=== PATIENT | male | born 1950 | race Caucasian/White ===

== ENCOUNTER 2018-10-14 10:33 | Outpatient (CLI) | payer MEDICARE, BC ==
[2018-10-14 11:33] LABS: Estimated GFR-MDRD - POC Greater than 90
--- NOTE | 2018-10-14 15:01 | CT ---
CT chest noncontrast HISTORY: Supraclavicular mass. COMPARISON: 05/16/2009. FINDINGS: Minimal dependent bibasilar atelectasis. No lobar consolidation. No pleural fluid or pneumo thorax. Nonspecific nonenlarged lymph nodes throughout the mediastinum are unchanged in appearance from the p revious exam. No supraclavicular mass is demonstrated on this exam. Please see separate report regarding CT of the neck. Degenerative changes thoracic spine. IMPRESSION: No significant abnormalities are demonstrated.
--- NOTE | 2018-10-14 16:11 | CT ---
CT NECK SOFT TISSUES WITH CONTRAST: Date: 10/14/18 HISTORY: 68-year-old male with ICD-10: R22.2 supraclavicular mass. COMPARISON: 10/19/08. FINDINGS: Again noted is the bilateral thickening of the palatine tonsils. The lingual tonsil and adenoids are not significantly enlarged. No abnormality identified involving the parotid, retropharyngeal, submand ibular, wood lather, posterior cervical, retropharyngeal, and perivertebral, and parapharyngeal, space s. There is no cervical lymphadenopathy, cystic lesion, or solid tumor mass. This includes the suprac lavicular regions bilaterally. There is a greater amount of fat in the bilateral supraclavicular jj ons now than on the previous CT of 2008, as well as increase in volume fat in all areas of neck and u pper chest in general. No destructive osseous lesion. Mucus retention cyst at floor of left maxillary sinus is noted. It is smaller than the one in 2009. The rest of the maxillary sinuses, and the bilat eral tympanomastoid cavities, are grossly clear. There is mild atherosclerotic calcification of right proximal internal carotid artery without high grade stenosis there. No other abnormality of bilatera l carotid spaces. Nonspecific multiple mildly enlarged mediastinal lymph nodes. Normal larynx. No th yromegaly. IMPRESSION: 1. Generalized overall increased amount of body fat compared to 2009. 2. This includes lipomatosis of the bilateral supraclavicular regions. 3. Mild enlargement of bilateral palatine tonsils. 4. Otherwise negative. 5. No evidence of cervical neoplasm. POS: CET
== END 2018-10-14 10:34 | disposition home or self-care (01) ==
LOC: BICCT 10:33
PROVIDERS: ATTEND Surgery
DX: R22.2 Localized swelling, mass and lump, trunk (principal); E88.2 Lipomatosis, not elsewhere classified; J35.1 Hypertrophy of tonsils
CPT/HCPCS: 70491; 71260; 82565

== ENCOUNTER 2019-03-22 16:29 | Inpatient (IN) | payer MEDICARE, BC ==
[2019-03-22 17:17] LABS: #Eosinphils 0.1 thou/uL (0.0-0.7); #Lymphocytes 1.5 thou/uL (1.20-3.40); #Monocytes 0.8 thou/uL (0.11-0.59); #Neutrophils 6.7 thou/uL (1.40-6.50); %Basophils 0.5 % (0.0-1.0); %Eosinophils 1.4 % (0.0-10.0); %Monocytes 8.7 % (0.0-10.0); %Neutrophils 73.3 % (42.0-75.0); Hemoglobin 16.2 g/dL (14.0-18.0); Mean Corpuscular HGB CONC 33.1 g/dL (32.0-36.0); Mean Corpuscular Hemoglobin 29.9 pg (27.0-31.0); Mean Corpuscular Volume 90.3 fL (78.0-98.0); Platelet Count 294 thou/uL (130-400); RBC Distribution Width 12.6 % (11.5-14.5); Red Blood Cell (RBC) Count 5.43 mill/uL (4.70-6.10); White Blood Cell (WBC) Count 9.2 thou/uL (4.8-10.8)
[2019-03-22] MEDS ORDERED: Diltiazem 125 MG in Sodium Chloride 0.9% 100 ML IVPB SCH (17:30)
[2019-03-22 17:48] LABS: ALT (SGPT) 34 U/L (8-55); AST (SGOT) 22 U/L (5-34); Albumin 4.3 g/dL (3.4-4.8); Alkaline Phosphatase 77 U/L (40-110); Anion Gap 12 mmol/L (10-20); BUN (Urea Nitrogen) 16 mg/dL (8.4-25.7); Bilirubin, Total 0.8 mg/dL (0.2-1.2); CK (CPK) 53 U/L (30-200); Calc. Creatinine Clearance 0 mL/min (70-130); Calcium 9.3 mg/dL (7.8-10.44); Carbon Dioxide 28 mmol/L (23-31); Chloride 106 mmol/L (98-107); Estimated GFR-MDRD 84; Globulin 3.4 g/dL (2.4-3.5); Glucose 114 mg/dL (80-115); Potassium 3.9 mmol/L (3.5-5.1); Protein, Total 7.7 g/dL (5.8-8.1); Sodium 142 mmol/L (136-145)
--- NOTE | 2019-03-22 18:17 | RAD ---
PORTABLE CHEST: 03/22/19 PROVIDED CLINICAL HISTORY: Dyspnea. FINDINGS: Comparison 05/20/13. Cardiac and mediastinal silhouette is unchanged in appearance. No focal consolidation, pleural fluid, or pneumothorax apparent. IMPRESSION: No evidence for an acute cardiopulmonary process. POS: LORNA
[2019-03-22 18:51] LABS: Prothrombin Time 13.1 SEC (12.0-14.7)
[2019-03-22 18:52] LABS: PTT 31.8 SEC (22.9-36.1)
[2019-03-22] MEDS ORDERED: Enoxaparin Sodium 100 MG/ML SYRINGE ONE (19:12)
[2019-03-22] MEDS ORDERED: Insulin Regular 300 UNITS/3 ML VIAL SC PRN (21:27)
[2019-03-22] MEDS ORDERED: Dextrose 5% in Water 1,000 ML IV PRN (21:27)
[2019-03-22] MEDS ORDERED: Dextrose 50% Abboject 50 ML SYRINGE IVP PRN (21:27)
[2019-03-22 23:03] VITALS: BMI 35.3
[2019-03-22 23:37] LABS: Troponin I Less than 0.010 ng/mL (< 0.028)
[2019-03-23 05:57] LABS: Troponin I 0.014 ng/mL (< 0.028)
[2019-03-23 05:59] LABS: ALT (SGPT) 30 U/L (8-55); AST (SGOT) 21 U/L (5-34); Albumin 3.7 g/dL (3.4-4.8); Alkaline Phosphatase 64 U/L (40-110); Anion Gap 13 mmol/L (10-20); BUN (Urea Nitrogen) 14 mg/dL (8.4-25.7); Bilirubin, Total 0.8 mg/dL (0.2-1.2); Calc. Creatinine Clearance 148 mL/min (70-130); Calcium 8.7 mg/dL (7.8-10.44); Carbon Dioxide 26 mmol/L (23-31); Chloride 105 mmol/L (98-107); Estimated GFR-MDRD Greater than 90; Globulin 3.1 g/dL (2.4-3.5); Glucose 122 mg/dL (80-115); Potassium 3.9 mmol/L (3.5-5.1); Protein, Total 6.8 g/dL (5.8-8.1); Sodium 140 mmol/L (136-145)
[2019-03-23] MEDS ORDERED: Acetaminophen 325 MG TAB PO PRN (09:27)
--- NOTE | 2019-03-23 16:02 | CON ---
DATE OF CONSULTATION: 03/23/2019 WORK OVER RIG OPERATOR: Rajan Belle MD REASON FOR CONSULTATION: Atrial fibrillation, newly diagnosed, with RVR. HISTORY OF PRESENT ILLNESS: Mr. Cuevas is a 68-year-old gentleman, whose primary care provider is Dr. Villalta. He has a history of hypertension and diabetes as well as obesity. He had run out of his metformin. He had a routine followup appointment with his primary care provider, when they found his heart rate was quite rapid. A 12-lead EKG was done and he was found to be in atrial fibrillation with RVR. He was placed on a diltiazem drip and transferred to [facility] for further medical care and evaluation. He remains on a Cardizem drip at 5 mg/hour, which has largely rate controlled him between 75 and 100 beats per minute. He endorses that he has no prior diagnosis of atrial fibrillation, was not on anticoagulation prior to this hospital stay. He had been having some fatigue and weakness with low energy levels for the past 2 to 3 months, but no severe limitations or symptomatic presentation was seen. He denies any heart racing, palpitations, chest pain, pressure, syncope, near syncope, stroke, or stroke- like symptoms. REVIEW OF SYSTEMS: A 12-point review of systems is negative except that listed above in HPI. PAST MEDICAL HISTORY: 1. Hypertension. 2. Type 2 diabetes, on metformin. 3. Obesity. FAMILY HISTORY: Father from a heart attack in his 60s and mother had congestive heart failure. A brother has atrial fibrillation. SOCIAL HISTORY: Denies alcohol, tobacco, or illicit drug use. HOME MEDICATIONS: 1. Aspirin 81 mg daily. 2. Metformin 1000 mg p.o. q.p.m. 3. Amlodipine and atorvastatin 5/20 mg daily. 4. Lisinopril 10 mg daily. OBJECTIVE: VITAL SIGNS: Temperature 97.8, pulse 79, blood pressure 120/77, respirations 14, and oxygenation is 96% on room air. GENERAL: The patient is alert and oriented. Speech is clear. Affect is appropriate. He is in no apparent distress. Resting comfortably in bed at the time of the exam. NECK: Quite large. No jugular venous distention is seen, but is difficult to assess with his habitus. Trachea is midline. There is no lymphadenopathy. Carotids are without bruit. HEART: Rate is irregularly irregular. Heart rate is controlled. PMI is nonpalpable due to habitus. LUNGS: Clear to auscultation bilaterally without wheezes, crackles, or rhonchi. Respirations are even and unlabored with good bilateral excursion. ABDOMEN: Obese, soft, and nontender without palpable masses. Hepatojugular reflux is negative. EXTREMITIES: Warm and dry to touch without clubbing, cyanosis, or edema. NEUROLOGIC: Grossly intact and nonfocal. Gait was not assessed. DATABASE: EKG shows atrial fibrillation with a controlled ventricular rate in the 70s by telemetry. Atrial fibrillation is ongoing since being on telemetry. LABORATORY DATA: Hematology was unremarkable. Chemistry: Potassium 3.9, creatinine 0.82. Liver enzymes are within normal limits. Troponins are negative. TSH is 2.03. Echocardiogram on 03/23/2019 shows left ventricular size is mildly increased, left ventricular ejection fraction is mildly depressed and estimated at 40% to 45%, left atrium is mildly dilated. There is moderate MR, mild AR, mild TR. Aortic valve is sclerotic. Left atrial area is 27.96 sq cm. Left atrial volume index is 102.3 mL. IMPRESSION: 1. Newly diagnosed atrial fibrillation with rapid ventricular response, moderately symptomatic with fatigue, shortness of breath, and low energy levels, now rate controlled on Cardizem. 2. CHADS-VASc score of 3 on the basis of advancing age, hypertension, and type 2 diabetes, possibly for considering the mild cardiomyopathy that is newly diagnosed. 3. Family history of coronary artery disease. 4. Mild cardiomyopathy, etiology unknown. Ejection fraction 40% to 45%. 5. Obesity. 6. High risk for sleep apnea. PLAN AND RECOMMENDATIONS: I had a long discussion with Mr. Cuevas and his family who is at bedside regarding atrial fibrillation and treatment options. They are actually somewhat familiar with this as his brother has atrial fibrillation and has undergone both JOHANN cardioversion, antiarrhythmic therapy, and ablation in the past. Mr. Cuevas has newly diagnosed cardiomyopathy and Cardiology consult is pending. We will discuss with Cardiology and see if possible ischemic evaluation is pending. Ultimately, Mr. Cuevas remains on a diltiazem drip, and based on his symptoms, it sounds like his atrial arrhythmias have likely been persisting for the past 2 to 3 months. We discussed treatment options of JOHANN-guided cardioversion, antiarrhythmic therapy, and ablation. At this point, I would recommend he undergo a JOHANN cardioversion, which could possibly be done by one of Dr. Belle's associates tomorrow. If recurrence is seen, we could consider antiarrhythmic therapy with flecainide 100 mg p.o. b.i.d., but would like a stress test to assess for any underlying coronary artery disease before initiating class 1C antiarrhythmic therapy. Alternatively, with his mildly reduced EF, amiodarone could be considered as well. Long-term, he may require an ablation for arrhythmia management. His left atrium on echocardiogram does show some dilation already, suggesting a longer history of this atrial fibrillation than has been clinically seen. We will schedule him for a JOHANN cardioversion tomorrow with Cardiology and keep him n.p.o. after midnight. He can continue on the diltiazem drip for now, but anticipate this being stopped following cardioversion. Thank you for allowing me to participate in the care of this patient. Job ID: [id number] MTDD
[2019-03-23] MEDS: Carvedilol 3.125 MG TAB PO SCH (16:07)
--- NOTE | 2019-03-23 16:18 | HP ---
CHIEF COMPLAINT: Irregular heartbeat. HISTORY OF PRESENT ILLNESS: Mr. Cuevas is a 68-year-old male with past medical history of diabetes, hypertension, hyperlipidemia, was seen earlier in the office for routine followup and refills. The patient did not have any palpitation, no chest pain. He has some shortness of breath on and off on exertion for the last few weeks, but no dizziness. The patient on exam was found to have irregular heartbeat. EKG was done in the office revealed atrial fibrillation with controlled heart rate. So, the patient was advised to go to the ER for further evaluation. First he went home, then he wanted to go home tomorrow, but later he decided to go to the ER today itself and he went by EMS and he was found to be in atrial fibrillation with rapid ventricular rate in the ER. The patient received diltiazem IV push and then started on infusion afterwards. Also he received a dose of Lovenox. The patient admitted for further evaluation and management. His heart rate is controlled now. He did not have any chest pain or shortness of breath now. PAST MEDICAL HISTORY: 1. Hypertension. 2. Diabetes mellitus. 3. Hyperlipidemia. PAST SURGICAL HISTORY: Status post back surgery, status post knee surgery, status post hernia repair, status post stomach tumor removed. CURRENT MEDICATIONS: The patient is on 1. Metformin 1000 b.i.d. 2. Aspirin 81 mg daily. 3. Lisinopril 10 mg daily. 4. Amlodipine with atorvastatin 5/20 daily. ALLERGIES: NKDA. FAMILY HISTORY: Nothing contributory. SOCIAL HISTORY: The patient lives with family. No history of smoking. He drinks alcohol, beer five drinks a day. REVIEW OF SYSTEMS: CARDIOVASCULAR: Has no chest pain. No shortness of breath. RESPIRATORY: No fever or cough. GASTROINTESTINAL: No nausea, vomiting, or abdominal pain. CENTRAL NERVOUS SYSTEM: No headache, dizziness. PHYSICAL EXAMINATION: GENERAL: The patient is alert, awake, oriented x3. VITAL SIGNS: Temperature 98, pulse 112 initially, respiration 20, blood pressure 150/100. HEENT: Head is normocephalic, atraumatic. Pupils are equal and reactive. Nasopharynx is pale and dry. NECK: Supple. No JVD. LUNGS: Bilateral air entry. No rales. No rhonchi. HEART: S1, S2. Irregularly irregular. ABDOMEN: Soft. No distention. No tenderness. Normal bowel sounds. RECTAL: Deferred. CENTRAL NERVOUS SYSTEM: No focal deficits. LABORATORY DATA: CBC shows WBC 9, hemoglobin 16, hematocrit 49, platelets 294. Metabolic panel: Sodium 140, potassium 3.9, chloride 104, CO2 of 26, urea nitrogen 14, creatinine 0.9, glucose 122. Troponin I less than 0.010. Prothrombin time 13, INR 1. Chest x-ray, no acute changes seen. EKG showed atrial fibrillation with rapid ventricular rate with heart rate of 117, no acute ST-T changes seen. ASSESSMENT: 1. Atrial fibrillation, new onset with rapid ventricular rate. 2. Hypertension. 3. Diabetes mellitus. 4. Hyperlipidemia. PLAN: 1. Vital signs q.4 hours. 2. Activities as tolerated. 3. Allergies NKDA. 4. Diet, cardiac ADA. 5. Cardizem infusion 5 mL/hour. 6. Accu-Chek before meals. 7. Sliding scale mild with regular insulin. 8. Hold metformin. 9. We will continue his home medications. Cardiology consult. Job ID: [id number]
[2019-03-23] MEDS ORDERED: Amiodarone 150 MG, Admixture Fee 1 EACH in Dextrose 5% in Water 100 ML IVPB SCH (17:00)
[2019-03-23] MEDS: Amiodarone 450 MG in Dextrose 5% in Water 250 ML IVPB SCH (17:48)
--- NOTE | 2019-03-23 18:39 | CON ---
DATE OF CONSULTATION: HISTORY OF PRESENT ILLNESS: Dane Cuevas is a 68-year-old white male, who went yesterday to see his primary physician, Dr. Villalta for routine followup. There, it was noticed that he had an irregular rhythm, was found to be in atrial fibrillation, and sent to the emergency room. Over the past 2 to 3 months, Mr. Cuevas has noted exertional dyspnea. He denies having any chest, arm, neck, or jaw discomfort. He denies ever feeling any palpitations. At times, he may have some left ankle edema. He denies any PND. PAST MEDICAL HISTORY: Hypertension, diabetes, and hypercholesterolemia. PAST SURGICAL HISTORY: Operations: Removal of gastric carcinoid, knee surgery , and hernia repair. MEDICATIONS: 1. Amlodipine/atorvastatin 5/20 daily. 2. Aspirin 81 daily. 3. Lisinopril 10 mg daily. 4. Metformin 500 mg q.p.m. ALLERGIES: NONE. SOCIAL HISTORY: He smoked until 20 years ago. He does drink a 6 pack a day and more on weekends. FAMILY HISTORY: Father of [place] at age 68. REVIEW OF SYSTEMS: A 10-point review of systems otherwise is unremarkable. PHYSICAL EXAMINATION: VITAL SIGNS: Blood pressure 144/90, pulse of 87 and irregularly irregular. He is on a Cardizem drip. HEENT: PERRL. NECK: Supple. CHEST: Clear. CARDIAC: S1 and S2 are normal without any S3, S4, or murmurs. Carotid upstrokes are normal without bruits. ABDOMEN: Normal bowel sounds without tenderness or organomegaly. EXTREMITIES: Revealed no clubbing, cyanosis, or edema. NEUROLOGIC: Grossly intact. SKIN: Warm and dry. LABORATORY DATA: EKG revealed atrial fibrillation with fast ventricular response, 105 and 117 on separate EKGs as well as left axis deviation. Echocardiogram revealed mild left ventricular enlargement, ejection fraction of 40% to 45%, mild left atrial enlargement, moderate mitral regurgitation, aortic valvular sclerosis, mild aortic regurgitation, and mild tricuspid regurgitation. CBC is unremarkable. INR 1.0. Sodium 140, potassium 3.9, chloride 105, carbon dioxide 26, BUN 14, creatinine 0.82. Troponin I is normal. TSH is normal. IMPRESSION: 1. Atrial fibrillation with fast ventricular response at times. He also has noted exertional dyspnea for 2 months, and that may have been how long he has had the atrial fibrillation. 2. Mild left ventricular dysfunction with ejection fraction of 40% to 45%. 3. Hypertension. 4. Diabetes. 5. Hypercholesterolemia. 6. Former smoker. 7. Positive family history. PLAN: The situation was discussed with the patient and his . We recommended that he be anticoagulated, and Eliquis will be started tonight. Also, with his left ventricular dysfunction, he will be started on amiodarone bolus and drip. It is recommended that he undergo transesophageal echo in the morning to rule out left atrial appendage or left atrial thrombus. He will then undergo electrical cardioversion. Risks of cardioversion were discussed including , worse heart rhythm, embolic event, stroke, etc. He agrees to proceed. Consideration can be given to outpatient nuclear scan. Fasting lipid profile will be obtained. With his left ventricular dysfunction, his current medications will be discontinued, and instead, he will be placed on carvedilol and probably Entresto. Job ID: [id number] MTDD
[2019-03-23] MEDS: Atorvastatin Calcium 20 MG TAB PO SCH (20:19)
[2019-03-23] MEDS: Apixaban 5 MG TAB PO SCH (20:19)
[2019-03-24] MEDS: Amiodarone 450 MG in Dextrose 5% in Water 250 ML IVPB SCH (01:23)
[2019-03-24] MEDS: Carvedilol 3.125 MG TAB PO SCH ×2 (05:44→16:57)
[2019-03-24] MEDS ORDERED: PROPOFOL 60 ML ONE (08:00)
[2019-03-24] MEDS: Apixaban 5 MG TAB PO SCH ×2 (08:36→21:04)
[2019-03-24] MEDS ORDERED: ePHEDrine/0.9% NaCl/PF SYRINGE 50 mg/10 ml ONE ×2 (08:57→09:10)
[2019-03-24] MEDS ORDERED: Regadenoson 0.4 MG/5 ML SYRINGE ONE (12:38)
--- NOTE | 2019-03-24 13:57 | OP ---
DATE OF PROCEDURE: 03/24/2019 PROCEDURE PERFORMED: Transesophageal echogram. INDICATION: A 68-year-old gentleman with paroxysmal atrial fibrillation. DESCRIPTION OF PROCEDURE: The patient was taken to the PACU. The patient was seated by Anesthesiology. A transesophageal probe was placed into the distal esophagus and stomach. Echocardiographic images were obtained. The transesophageal probe was removed. FINDINGS: 1. Marked biatrial enlargement. 2. Left ventricle is mildly dilated. 3. Normal aortic and mitral valves. 4. Mild mitral regurgitation. 5. Mild tricuspid regurgitation. 6. No thrombus noted in the left atrial or left atrial appendage. 7. Atherosclerotic debris in the descending aorta. IMPRESSION: No formed thrombus in the left atrial or left atrial appendage. Job ID: [id number]
--- NOTE | 2019-03-24 16:43 | PDOC.EP ---
- Subjective Date: 03/24/19 Time: 08:00 Interval History: follow up for atrial fibrillation. s/p JOHANN with attempted CV this AM. failed to convert. Some bradycardia with addition of IV amiodarone. otherwise he is feeling fairly well as he recovers from recent anesthesia/JOHANN CV - Review of Systems ROS unobtainable: due to mental status - Objective Allergies/Adverse Reactions: Allergies Allergy/AdvReac Type Severity Reaction Status Date / Time No Known Drug Allergies Allergy Verified 05/20/13 14:54 Current Medications Acetaminophen (Tylenol) 650 mg PO Q4H PRN PRN Reason: Headache/Fever or Pain Last Admin: 03/23/19 09:36 Dose: 650 mg Amiodarone HCl (Cordarone) 200 mg PO TID [facility] Apixaban (Eliquis) 5 mg PO BID [facility] Last Admin: 03/24/19 08:36 Dose: Not Given Atorvastatin Calcium (Lipitor) 20 mg PO HS [facility] Last Admin: 03/23/19 20:19 Dose: 20 mg Carvedilol (Coreg) 3.125 mg PO BID-[facility] Last Admin: 03/24/19 05:44 Dose: 3.125 mg Dextrose/Water (Dextrose 50%) 25 gm IVP PRN PRN PRN Reason: HYPOGLYCEMIA PROTOCOL Glucagon (Glucagon) 1 mg IM PRN PRN PRN Reason: HYPOGLYCEMIA PROTOCOL Dextrose/Water (D5w) 1,000 mls @ 0 mls/hr IV INF PRN PRN Reason: HYPOGLYCEMIA PROTOCOL Insulin Human Regular (Humulin R) 0 units SC .MILD SLIDING PRN; Protocol PRN Reason: MILD SLIDING SCALE Vital Signs & Weight: Vital Signs Temp Pulse Resp BP Pulse Ox 03/24/19 13:03 97.9 F 86 20 120/81 95 03/24/19 10:29 98.7 F 73 18 114/71 93 L 03/24/19 07:25 97.5 F L 64 18 111/72 96 Weight 270 lb I/O: I/O 03/23/19 03/24/19 03/25/19 06:59 06:59 06:59 Intake Total 480 1107 600 Output Total 0 Balance 480 1107 600 - Quality Measures CV meds: Eliquis: Yes - Physical Exam General: appears well, no apparent distress, speech clear, affect appropriate HEENT: mucus membranes moist, normocephaly, EOMI. negative: jaundice, oral lesions Neck: supple neck, midline trachea, no lymphadenopathy Cardiology: regular rate, irregularly irregular. negative: tachycardia Lungs: clear to auscultation, no wheeze, rales, rhonchi Neurology: grossly intact, coordination normal, no lateralizing findings Abdomen: unremarkable, active bowel sounds, no pulsations/bruits, no hepatosplenomegaly Extremities: dry, strong pulses, warm - Chadsvasc Risk factors Congestive heart failure: 1 Hypertension: 1 Age 65-74: 1 Diabetes mellitus: 1 Risk Score: 4 - Labs Result Diagrams: 03/22/19 17:00 03/23/19 04:53 - EKG Interpretation EKG shows: Atrial fibrillation - Assessment/Plan Assessment/Plan: 1. Newly diagnosed atrial fibrillation with rapid ventricular response, moderately symptomatic with fatigue, shortness of breath, and low energy levels, now rate controlled on Cardizem. 2. CHADS-VASc score of 3 on the basis of advancing age, hypertension, and type 2 diabetes, possibly for considering the mild cardiomyopathy that is newly diagnosed. 3. Family history of coronary artery disease. 4. Mild cardiomyopathy, etiology unknown. Ejection fraction 40% to 45%. 5. Obesity. 6. High risk for sleep apnea. CV failed this AM. having bradycardia with IV amiodarone. Will transition to PO amiodarone which may lessen the bradycardic effect. Also on low dose coreg for HF per cardiology. Continue Eliquis. Recommend rate control with amiodarone loading. Can consider CV in 2-4 weeks. Will see back in clinic to discuss options including ablation.
[2019-03-24] MEDS: Amiodarone 200 MG TAB PO SCH (21:03)
[2019-03-24] MEDS: Atorvastatin Calcium 20 MG TAB PO SCH (21:03)
[2019-03-25] MEDS: Amiodarone 200 MG TAB PO SCH (08:58)
[2019-03-25] MEDS: Apixaban 5 MG TAB PO SCH (08:58)
[2019-03-25] MEDS: Carvedilol 3.125 MG TAB PO SCH (11:20)
--- NOTE | 2019-03-25 12:03 | PDOC.EP ---
- Subjective Date: 03/25/19 Time: 12:01 Interval History: follow up for atrial fibrillation. feels well today. Eager to go home. No concerns or complaints - Review of Systems Constitutional: denies: chills, fever, malaise, sweats, weakness, other Respiratory: denies: cough, dry, hemoptysis, pleuritic pain, shortness of breath , SOB with excertion, sputum, wheezing, other Cardiology: denies: chest pain, edema, heart racing, light headedness, paroxysmal noc. dyspnea, orthopnea, palpitations, passing out, pleuritic pain, pressure, swelling, other Gastrointestinal: denies: abdominal pain, constipation, diarrhea, hematochezia, melena, nausea, vomitting, other Musculoskeletal: denies: unstable gait, falls, neck pain, shoulder pain, arm pain, hand pain, leg pain, foot pain, other - Objective Allergies/Adverse Reactions: Allergies Allergy/AdvReac Type Severity Reaction Status Date / Time No Known Drug Allergies Allergy Verified 05/20/13 14:54 Current Medications Acetaminophen (Tylenol) 650 mg PO Q4H PRN PRN Reason: Headache/Fever or Pain Last Admin: 03/23/19 09:36 Dose: 650 mg Amiodarone HCl (Cordarone) 200 mg PO TID [facility] Last Admin: 03/25/19 08:58 Dose: 200 mg Apixaban (Eliquis) 5 mg PO BID [facility] Last Admin: 03/25/19 08:58 Dose: 5 mg Atorvastatin Calcium (Lipitor) 20 mg PO [facility] Last Admin: 03/24/19 21:03 Dose: 20 mg Carvedilol (Coreg) 3.125 mg PO BID-[facility] Last Admin: 03/25/19 11:20 Dose: 3.125 mg Dextrose/Water (Dextrose 50%) 25 gm IVP PRN PRN PRN Reason: HYPOGLYCEMIA PROTOCOL Glucagon (Glucagon) 1 mg IM PRN PRN PRN Reason: HYPOGLYCEMIA PROTOCOL Dextrose/Water (D5w) 1,000 mls @ 0 mls/hr IV INF PRN PRN Reason: HYPOGLYCEMIA PROTOCOL Insulin Human Regular (Humulin R) 0 units SC .MILD SLIDING PRN; Protocol PRN Reason: MILD SLIDING SCALE Last Admin: 03/24/19 21:04 Dose: 2 units Vital Signs & Weight: Vital Signs Temp Pulse Resp BP Pulse Ox 03/25/19 11:18 97.6 F 93 15 133/97 H 95 03/25/19 07:29 98.1 F 88 18 132/77 94 L 03/25/19 04:12 97.9 F 87 18 132/86 94 L Weight 269 lb 14.4 oz I/O: I/O 03/24/19 03/25/19 03/26/19 06:59 06:59 06:59 Intake Total 1107 1320 Output Total 0 Balance 1107 1320 - Quality Measures Condition: Atrial Fibrillation/Flutter (hx or current) CV meds: Eliquis: Yes - Physical Exam General: alert & oriented x3, appears well, no apparent distress, speech clear, affect appropriate HEENT: mucus membranes moist, normocephaly Neck: supple neck, midline trachea, no JVD/HJR Cardiology: regular rate, irregularly irregular Lungs: clear to auscultation, no wheeze, rales, rhonchi Neurology: cranial nerve 2-12 intact, grossly intact, no lateralizing findings Abdomen: unremarkable, no pulsations/bruits, no hepatosplenomegaly Extremities: dry, strong pulses, warm - Chadsvasc Risk factors Hypertension: 1 Age 65-74: 1 Diabetes mellitus: 1 Risk Score: 3 - Labs Result Diagrams: 03/22/19 17:00 03/23/19 04:53 - EKG Interpretation EKG Method: Telemetry EKG shows: Atrial fibrillation - Assessment/Plan Assessment/Plan: 1. Newly diagnosed atrial fibrillation with rapid ventricular response, moderately symptomatic with fatigue, shortness of breath, and low energy levels, now rate controlled on Cardizem. 2. CHADS-VASc score of 3 on the basis of advancing age, hypertension, and type 2 diabetes 3. Family history of coronary artery disease. 4. Mild cardiomyopathy, etiology unknown. Ejection fraction 40% to 45%. 5. Obesity. 6. High risk for sleep apnea. CV failed on 03/24, JOHANN negative for thrombus. Had bradycardia with IV amiodarone. Transitioned to PO amiodarone which lessened the bradycardic effect. Also on low dose coreg for HF per cardiology. Continue Eliquis. Recommend rate control and continued AAD therapy with amiodarone loading. Can consider CV in 2-4 weeks vs PVAI. Will see back in clinic to discuss options including ablation.
--- NOTE | 2019-03-25 12:22 | NM ---
CARDIAC SPECT: HISTORY: A 68-year-old male with elevated troponins, atrial fibrillation, hypertension, diabetes and dyslipide michelle. TECHNIQUE: A myocardial perfusion scan was performed using the single isotope two day protocol with 32 millicuri es technetium 99m sestamibi injected intravenously for the stress and rest images. Pharmacologic stre ss with Lexiscan was monitored and interpreted by Kierra Coelho, Nurse Practitioner. FINDINGS: A homogeneous tracer distribution is seen in the myocardial segments on the rest images. The stress i mages demonstrate a small area of mildly decreased tracer localization in the distal anteroseptal wal l. GATED SPECT LVEF: 58% WALL MOTION: Normal. IMPRESSION: Findings suggestive of small area of mild ischemia with complete reversibility involving the distal a nteroseptal wall. POS: [facility]
[2019-03-25 16:16] VITALS: BP 122/89; TEMP 97.5
--- NOTE | 2019-03-25 16:33 | OP ---
DATE OF PROCEDURE: 03/24/19 SURGEON: Rajan Belle M.D. PROCEDURE: Direct current cardioversion. Patient remained sedated after transesophageal echo demonstrated no intracardiac thrombus. With 200 j oules of synchronized energy, he remained in atrial fibrillation. With 300 joules of synchronized mariah rgy, he had a few sinus beats and then reverted back to atrial fibrillation. He was again cardioverte d with 300 joules using he paddles and again remained in atrial fibrillation. IMPRESSION: Failure to convert atrial fibrillation.
[2019-03-25] MEDS ORDERED: Atorvastatin Calcium 40 MG TAB PO SCH (21:00)
[2019-03-25] MEDS ORDERED: Lisinopril 5 MG TAB PO SCH (21:00)
[2019-03-25] MEDS ORDERED: Amiodarone 200 MG TAB PO SCH (21:00)
== END 2019-03-25 17:12 | disposition home or self-care (01) | DRG 310 ==
LOC: ERS 16:29 → 2NO 18:31
PROVIDERS: ADMIT Internal Medicine; ATTEND Internal Medicine
PROC: B24BZZ4 Ultrasonography of Heart with Aorta, Transesophageal (ICD-10-PCS; principal; 2019-03-24)
PROC: 5A2204Z Restoration of Cardiac Rhythm, Single (ICD-10-PCS; 2019-03-24)
DX: I48.91 Unspecified atrial fibrillation (principal); I42.9 Cardiomyopathy, unspecified; E66.9 Obesity, unspecified; Z68.35 Body mass index [BMI] 35.0-35.9, adult; I10 Essential (primary) hypertension; E78.5 Hyperlipidemia, unspecified; E78.00 Pure hypercholesterolemia, unspecified; I70.0 Atherosclerosis of aorta; I08.1 Rheumatic disorders of both mitral and tricuspid valves; E11.9 Type 2 diabetes mellitus without complications; Z98.890 Other specified postprocedural states; Z79.84 Long term (current) use of oral hypoglycemic drugs; Z82.49 Family history of ischemic heart disease and other diseases of the circulatory system; Z87.891 Personal history of nicotine dependence
CPT/HCPCS: 36415; 36416; 71045; 78452; 80053; 80061; 82550; 84443; 84484; 85025; 85610; 85730; 92960; 93005; 93017; 93306; 93312; 96361; 96365; 96366; 96372; 96376; A9500; J0282; J1650; J2704; J2785; J3490; J7070

== ENCOUNTER → 2019-05-06 | Day surgery (SDC) | payer MEDICARE, BC ==
[2019-05-05 11:38] VITALS: BMI 34.7
[~2019-05-06] MED LIST: Hydrocortisone 1% Cream 30 GM TUBE ONE; PROPOFOL 20 ML ONE; PROPOFOL 200 MG/20 ML VIAL ONE
[2019-05-06 10:45] LABS: #Basophils 0.1 thou/uL (0.0-0.2); #Eosinphils 0.1 thou/uL (0.0-0.7); #Lymphocytes 1.2 thou/uL (1.20-3.40); #Monocytes 0.7 thou/uL (0.11-0.59); #Neutrophils 4.9 thou/uL (1.40-6.50); %Basophils 0.8 % (0.0-1.0); %Eosinophils 1.8 % (0.0-10.0); %Lymphocytes 17.3 % (21.0-51.0); %Neutrophils 70.1 % (42.0-75.0); Hemoglobin 15.7 g/dL (14.0-18.0); Mean Corpuscular HGB CONC 33.7 g/dL (32.0-36.0); Mean Corpuscular Hemoglobin 30.3 pg (27.0-31.0); Mean Platelet Volume 7.5 fL (7.4-10.4); Platelet Count 269 thou/uL (130-400); RBC Distribution Width 12.4 % (11.5-14.5); Red Blood Cell (RBC) Count 5.17 mill/uL (4.70-6.10)
[2019-05-06 10:47] LABS: INR-International Normal Ratio 1.3; PTT 23.3 SEC (22.9-36.1)
[2019-05-06 10:57] LABS: Anion Gap 14 mmol/L (10-20); BUN (Urea Nitrogen) 19 mg/dL (8.4-25.7); Calc. Creatinine Clearance 117 mL/min (70-130); Calcium 9.2 mg/dL (7.8-10.44); Carbon Dioxide 22 mmol/L (23-31); Chloride 107 mmol/L (98-107); Estimated GFR-MDRD 76; Glucose 116 mg/dL (80-115); Potassium 4.3 mmol/L (3.5-5.1); Sodium 139 mmol/L (136-145)
--- NOTE | 2019-05-06 14:16 | OP ---
DATE OF PROCEDURE: 05/06/2019 PROCEDURE PERFORMED: Electrical cardioversion. REASON FOR PROCEDURE: Mr. Cuevas is a 68-year-old man with history of newly found atrial fibrillation, diagnosed in 03/2019. He also has reduced LVEF at 40% to 45%. History of EtOH abuse. He has had negative JOHANN during hospitalization in March, but subsequent cardioversion failed to convert him back to sinus rhythm. He is fully loaded on amiodarone. He has been also on Eliquis for over a month without fail. He is here for a planned cardioversion. DESCRIPTION OF PROCEDURE: The patient received propofol by anesthesia specialist. After adequate level of sedation achieved, a synchronized 200-joule shock failed to convert him back to sinus rhythm. A subsequent followup 360-joule shock converted him back to sinus rhythm without difficulty. The patient tolerated the procedure well. No complication noted. PLAN: Continue low-dose amiodarone and Eliquis. Consider pulmonary venous isolation procedure after the angioplasty is complete. Job ID: [id number]
--- NOTE | 2019-05-09 09:02 | EKG ---
Test Reason : PRE-CARDIOVERSION Blood Pressure : / mmHG Vent. Rate : 068 BPM Atrial Rate : 144 BPM P-R Int : 000 ms QRS Dur : 106 ms QT Int : 454 ms P-R-T Axes : 000 -42 -16 degrees QTc Int : 482 ms Atrial Flutter with variable A-V block Left axis deviation Prolonged QT Abnormal ECG Confirmed by FAB KENYON ([id number]) on 05/09/2019 9:02:00 AM Referred By: LEILA Confirmed By:FAB KENYON
== END ==
LOC: CCL 09:50
PROVIDERS: ATTEND Internal Medicine Cardiovascular Disease
PROC: 5A2204Z Restoration of Cardiac Rhythm, Single (ICD-10-PCS; principal; 2019-05-06)
DX: I48.19 Other persistent atrial fibrillation (principal); I10 Essential (primary) hypertension; I42.9 Cardiomyopathy, unspecified; E11.9 Type 2 diabetes mellitus without complications; E78.5 Hyperlipidemia, unspecified; E66.9 Obesity, unspecified; Z68.34 Body mass index [BMI] 34.0-34.9, adult; Z79.01 Long term (current) use of anticoagulants; Z79.84 Long term (current) use of oral hypoglycemic drugs; Z79.899 Other long term (current) drug therapy; Z87.891 Personal history of nicotine dependence
CPT/HCPCS: 80048; 85025; 85610; 85730; 92960; 93005; 93010; J2704

== ENCOUNTER 2019-05-23 06:17 | Outpatient (CLI) | payer MEDICARE, BC ==
[2019-05-23 12:04] LABS: Hemoglobin 15.7 g/dL (14.0-18.0); Mean Corpuscular HGB CONC 33.3 g/dL (32.0-36.0); Mean Corpuscular Hemoglobin 30.2 pg (27.0-31.0); Mean Corpuscular Volume 90.7 fL (78.0-98.0); Mean Platelet Volume 7.2 fL (7.4-10.4); Platelet Count 253 thou/uL (130-400); RBC Distribution Width 12.7 % (11.5-14.5); Red Blood Cell (RBC) Count 5.18 mill/uL (4.70-6.10)
[2019-05-23 12:13] LABS: PTT 38.6 SEC (22.9-36.1)
[2019-05-23 12:15] LABS: INR-International Normal Ratio 1.4; Prothrombin Time 16.8 SEC (12.0-14.7)
[2019-05-23 12:31] LABS: Anion Gap 14 mmol/L (10-20); BUN (Urea Nitrogen) 16 mg/dL (8.4-25.7); Calc. Creatinine Clearance 0 mL/min (70-130); Calcium 8.7 mg/dL (7.8-10.44); Carbon Dioxide 23 mmol/L (23-31); Chloride 107 mmol/L (98-107); Estimated GFR-MDRD 72; Glucose 106 mg/dL (80-115); Potassium 3.9 mmol/L (3.5-5.1); Sodium 140 mmol/L (136-145)
== END 2019-05-23 06:18 | disposition home or self-care (01) ==
LOC: LABBT 06:17
PROVIDERS: ATTEND Internal Medicine Cardiovascular Disease
DX: Z01.818 Encounter for other preprocedural examination (principal); I48.91 Unspecified atrial fibrillation
CPT/HCPCS: 80048; 85027; 85610; 85730; 93005; 93010

== ENCOUNTER 2019-05-24 05:36 | Observation (INO) | payer MEDICARE, BC ==
[2019-05-23 11:27] VITALS: BMI 35.2
[2019-05-24] MEDS ORDERED: Heparin 25,000 units/D5W 500 ML ONE (06:38)
[2019-05-24] MEDS ORDERED: Heparin 10,000 UNITS/1 ML VIAL ONE ×2 (06:38→10:44)
[2019-05-24] MEDS ORDERED: Fentanyl 100 MCG/2 ML VIAL ONE (07:46)
[2019-05-24] MEDS ORDERED: Famotidine/PF 20 mg/2ml Vial ONE (07:46)
[2019-05-24] MEDS ORDERED: Propofol 1,000 MG/100 ML VIAL IV ONE (07:46)
[2019-05-24] MEDS ORDERED: Propofol 500 MG/50 ML VIAL ONE (07:46)
[2019-05-24] MEDS ORDERED: Midazolam HCl 2 mg/2 ml Vial ONE (08:09)
[2019-05-24] MEDS ORDERED: Isoproterenol 0.2 MG/1 ML AMP ONE (08:47)
[2019-05-24] MEDS ORDERED: PROPOFOL 200 MG/20 ML VIAL ONE (09:32)
[2019-05-24] MEDS ORDERED: Rocuronium Bromide 10 MG/ML (10ML VIAL) ONE (09:32)
[2019-05-24] MEDS ORDERED: PHENYLEPHRINE-NS 100 MCG/ML 10 ML SYRINGE ONE (09:32)
[2019-05-24] MEDS ORDERED: Ondansetron PF 4 MG/2 ML Vial ONE (09:32)
[2019-05-24] MEDS ORDERED: Lidocaine 1% PF 5 ML VIAL ONE (09:32)
[2019-05-24] MEDS ORDERED: Metoclopramide HCl 10 MG/2 ML VIAL ONE (09:32)
[2019-05-24] MEDS ORDERED: Glycopyrrolate 0.2 MG/ML 5 ML SYRINGE ONE (09:32)
[2019-05-24] MEDS ORDERED: Protamine Sulfate 50 MG/5 ML VIAL ONE (11:27)
--- NOTE | 2019-05-24 14:44 | RAD ---
Exam: Chest one view HISTORY:Status post cardiac device placement Comparison: 03/22/2019 FINDINGS: Cardiac silhouette:Normal cardiac silhouette Pacing device: There does not appear to be a pacing device projecting over the left or right hemithor ax. Aorta: Atherosclerosis and elongation aorta. Pulmonary vessels: Normal Costophrenic angles: Subtle left-sided pleural effusion. LUNGS: Left lower lobe consolidation due to atelectasis, pneumonia or aspiration. Pneumothorax: None Osseous abnormalities: None IMPRESSION: 1. Left lower lobe parenchymal changes. 2. No pneumothorax. 3. No evidence of a transvenous pacing device. Correlate clinically.
[2019-05-24] MEDS: metFORMIN 500 MG TAB PO SCH (16:17)
[2019-05-24] MEDS: Sucralfate 1 GM TAB PO SCH ×2 (16:17→22:03)
[2019-05-24] MEDS: Furosemide 40 MG/4 ML VIAL SLOW IVP SCH (16:18)
--- NOTE | 2019-05-24 16:49 | OP ---
DATE OF PROCEDURE: 05/24/2019 PROCEDURE PERFORMED: Comprehensive electrophysiology testing with 3D mapping and ablation of atrial fibrillation. CLINICAL INDICATION: Drug refractory atrial fibrillation. ASA CLASSIFICATION: III. ANESTHESIA: General endotracheal anesthesia per Anesthesiology. ADDITIONAL CARDIAC MEDICATIONS: None. ESTIMATED BLOOD LOSS: Less than 5 mL. TOTAL FLUOROSCOPY TIME: Zero. TOTAL ABLATION TIME: 51 minutes 44 seconds. ACUTE COMPLICATIONS: None apparent. METHODS: After informed consent was obtained, the patient was taken to the EP lab in a fasting state. Both groins were prepped and draped using ultrasound guidance. Right and left femoral veins were accessed, and wires were inserted into the central venous system. Wires were used to place an 11-Malian and an 8-Malian sheaths in the left groin, two 8-Malian sheaths in the right groin. All 8-Malian sheaths were then replaced by long sheaths for catheter stability. A circular and ablation catheters were placed in the right groin and advanced to the right atrium. A 3D map was obtained of the right atrium and the coronary sinus. An echo probe was placed in the left groin and advanced to the right atrium and right ventricle for imaging. A 20-pole catheter was placed in the left groin and advanced up to the coronary sinus and the olga terminalis. The patient was then fully anticoagulated. Transseptal catheterization was performed on 2 occasions. A 3D map was obtained of the left atrium. A temperature probe was placed in the esophagus adjacent to a location sensor. Ablation was delivered isolating all 4 pulmonary veins and posterior wall of the left atrium. Extensive ablation was also performed to isolate the distal coronary sinus and the floor and roof of the left atrium. Some lesions were applied on the right atrial septum. Cardioversion was then performed. The patient had significant conduction delay into the appendage, but it was not isolated. Occasional PACs were seen from the appendage, but no other ectopy. The patient was noninducible despite isoproterenol challenge. At the conclusion of the procedure, catheters were withdrawn into the right atrium. Heparin was reversed. Sheaths were pulled. Hemostasis was achieved with suture closure. RESULTS: 1. Baseline intervals: HV interval 59 milliseconds. The patient was in coarse atrial fibrillation. 2. Atrial function: The patient underwent extensive ablation isolating all 4 pulmonary veins and posterior wall of the left atrium as well as ablation along the septum of the right atrium. 3. Ablation details: A total of 51 minutes 44 seconds of radiofrequency current was delivered with an open-irrigated contact-force sensor-enabled Biosense Fuller ablation catheter. IMPRESSION: 1. Successful ablation isolating all 4 pulmonary veins and the floor of the left atrium. 2. Successful isolation of the distal coronary sinus and delay, but not isolation of the left atrial appendage. RECOMMENDATIONS: Continue with oral anticoagulation and 23-hour observation. Job ID: [id number]
[2019-05-24] MEDS: Apixaban 5 MG TAB PO SCH (21:00)
[2019-05-24] MEDS ORDERED: Atorvastatin Calcium 40 MG TAB PO SCH (21:00)
[2019-05-24] MEDS: Carvedilol 6.25 MG TAB PO SCH (21:00)
[2019-05-24] MEDS: Colchicine 0.6 MG TAB PO SCH (21:01)
[2019-05-25] MEDS: Furosemide 40 MG/4 ML VIAL SLOW IVP SCH (06:24)
[2019-05-25] MEDS ORDERED: Furosemide 40 MG TAB PO SCH (07:30)
[2019-05-25] MEDS ORDERED: Acetaminophen 325 MG TAB PO PRN (07:49)
[2019-05-25] MEDS ORDERED: Potassium Chloride 20 MEQ TAB PO SCH (08:00)
[2019-05-25 08:26] VITALS: BP 127/80; TEMP 100.5
[2019-05-25] MEDS: Sucralfate 1 GM TAB PO SCH (08:30)
[2019-05-25] MEDS: Apixaban 5 MG TAB PO SCH (08:30)
[2019-05-25] MEDS: metFORMIN 500 MG TAB PO SCH (08:30)
[2019-05-25] MEDS: Colchicine 0.6 MG TAB PO SCH (08:31)
[2019-05-25] MEDS: Carvedilol 6.25 MG TAB PO SCH (08:31)
[2019-05-25] MEDS ORDERED: Lisinopril 5 MG TAB PO SCH (09:00)
--- NOTE | 2019-05-26 15:00 | DIS ---
DATE OF ADMISSION: 05/24/2019 DATE OF DISCHARGE: 05/25/2019 DIAGNOSIS: Atrial fibrillation. PROCEDURES PERFORMED: Three dimensional mapping comprehensive electrophysiology study with ablation of atrial fibrillation. Total ablation time 51 minutes 44 seconds. Successful ablation isolating all four pulmonary veins in the floor of the left atrium. Successful isolation of the distal coronary sinus and delay without isolation of the left atrial appendage. SUBJECTIVE: Mr. Cuevas is a 68-year-old gentleman known to our practice for history of persistent atrial fibrillation refractory to amiodarone. He was feeling symptomatic with shortness of breath and has historically felt better in sinus rhythm. It was decided to move forward with an atrial fibrillation ablation given his atrial arrhythmias refractory to amiodarone. This was performed by Dr. Luz on 05/24/2019, as detailed above. Today, Mr. Cuevas is feeling well. He does have some aching chest discomfort that is worse with deep breathing, which is expected post ablation. He has been taking his colchicine to help reduce the inflammation. This is effective at managing his pain. He feels well and is eager to go home this afternoon. He denies any heart racing, palpitations, syncope, near syncope, stroke, stroke-like symptoms. REVIEW OF SYSTEMS: Eight-point review of systems is unremarkable except for the chest discomfort as detailed above. OBJECTIVE: VITAL SIGNS: Temperature 98.7, pulse 74, blood pressure 127/80, respirations 17, and oxygen 93% on room air. GENERAL: The patient is alert and oriented. Speech is clear. Affect is appropriate. He is in no apparent distress at the time of the exam. NECK: Supple without jugular venous distention. HEART: His heart rate is regularly regular. No evidence of tamponade. PMI is nonpalpable due to habitus. LUNGS: Sounds are clear in the upper lobes, but have some bibasilar crackles. Respirations are even unlabored with good bilateral excursion. ABDOMEN: Obese, soft, nontender. Bilateral groin sites are stable without hematoma or bleeding complications evident. EXTREMITIES: Warm and dry to touch, well perfused without clubbing, cyanosis, or edema. NEUROLOGIC: Grossly intact and nonfocal, and gait is stable. LABORATORY DATA: Telemetry and EKG show sinus rhythm. DISCHARGE INSTRUCTIONS: No soaking baths for seven days. No lifting more than 10 pounds for seven days and may resume prior activity gradually and as tolerated. DISCHARGE MEDICATIONS: 1. Lipitor 40 mg at bedtime. 2. Eliquis 5 mg p.o. b.i.d. 3. Metformin 1000 mg p.o. b.i.d. 4. Prinivil 5 mg daily. 5. Coreg 6.25 mg b.i.d. 6. Carafate prescription 1 g a.c. and at bedtime x2 weeks. 7. K-Dur 20 mEq p.o. with Lasix. 8. Lasix 40 mg p.o. daily x3 days, then as needed for shortness of breath and fluid retention. 9. Protonix 40 mg daily x30 days. 10. Colchicine 0.6 mg p.o. b.i.d. x2 weeks. CONDITION AT DISCHARGE: Stable. The patient is to contact [facility] with any postablation concerns or questions. We will see him back in six weeks for routine postablation followup. COMPLICATIONS: None. Job ID: [id number]
== END 2019-05-25 12:10 | disposition home or self-care (01) ==
LOC: CCL 05:36 → 2SW 11:27
PROVIDERS: ADMIT Internal Medicine Cardiovascular Disease; ATTEND Internal Medicine Cardiovascular Disease
DX: I48.19 Other persistent atrial fibrillation (principal); I42.9 Cardiomyopathy, unspecified; I10 Essential (primary) hypertension; E11.9 Type 2 diabetes mellitus without complications; E78.5 Hyperlipidemia, unspecified; E66.9 Obesity, unspecified; Z79.01 Long term (current) use of anticoagulants; Z87.891 Personal history of nicotine dependence; Z79.84 Long term (current) use of oral hypoglycemic drugs; Z79.899 Other long term (current) drug therapy; Z68.35 Body mass index [BMI] 35.0-35.9, adult
CPT/HCPCS: 71045; 76942; 85347 ×2; 92960; 93613; 93623; 93656; 93662; 96374; 96376; C1731; C1732 ×2; C1759; C1760; C1769; G0378 ×2; J1644; J1940; J2001; J2250; J2405; J2704; J2720; J2765; J3010; S0028

== ENCOUNTER 2020-08-31 10:12 | Outpatient (CLI) | payer MEDICARE, BC ==
[2020-08-31 11:59] LABS: Hemoglobin 14.7 g/dL (13.5-17.5); Mean Corpuscular Hemoglobin 29.3 pg (27.0-33.0); Mean Platelet Volume 9.8 fl (7.4-10.4); Platelet Count 261 10x3/uL (150-450); RBC Distribution Width 13.4 % (11.5-14.5); Red Blood Cell (RBC) Count 5.01 10x6/uL (4.32-5.72); White Blood Cell (WBC) Count 7.3 10x3/uL (3.5-10.5)
[2020-08-31 12:08] LABS: Anion Gap 15 mmol/L (10-20); BUN (Urea Nitrogen) 18 mg/dL (8.4-25.7); Calc. Creatinine Clearance 0 mL/min (70-130); Calcium 9.4 mg/dL (7.8-10.44); Carbon Dioxide 24 mmol/L (23-31); Chloride 106 mmol/L (98-107); Glucose 105 mg/dL (80-115); Potassium 4.6 mmol/L (3.5-5.1); Sodium 140 mmol/L (136-145)
[2020-08-31 12:11] LABS: INR-International Normal Ratio 1.2; PTT 29.6 sec (22.0-33.0)
== END 2020-08-31 10:13 | disposition home or self-care (01) ==
LOC: LABBT 10:12
PROVIDERS: ATTEND Internal Medicine Cardiovascular Disease
DX: Z01.818 Encounter for other preprocedural examination (principal); I48.91 Unspecified atrial fibrillation
CPT/HCPCS: 80048; 85027; 85610; 85730; 93005; 93010

== ENCOUNTER 2020-09-03 07:57 | Observation (INO) | payer MEDICARE, BC ==
[2020-09-03] MEDS ORDERED: Heparin 25,000 units/D5W 500 ML ONE (10:39)
[2020-09-03] MEDS ORDERED: Heparin 10,000 UNITS/ 10 ML VIAL ONE ×4 (10:39→14:57)
[2020-09-03] MEDS ORDERED: Fentanyl 100 MCG/2 ML VIAL ONE (10:49)
[2020-09-03] MEDS ORDERED: Phenylephrine 10 MG/ML VIAL ONE (10:50)
[2020-09-03] MEDS ORDERED: SUGAMMADEX SODIUM 500 MG/5 ML VIAL ONE (10:59)
[2020-09-03] MEDS ORDERED: PROPOFOL 200 MG/20 ML VIAL ONE (11:11)
[2020-09-03] MEDS ORDERED: PHENYLEPHRINE-NS 100 MCG/ML 10 ML SYRINGE ONE (11:11)
[2020-09-03] MEDS ORDERED: Lidocaine 1% PF 5 ML VIAL ONE (11:11)
[2020-09-03] MEDS ORDERED: Rocuronium Bromide 10 MG/ML (10ML VIAL) ONE (11:11)
[2020-09-03] MEDS ORDERED: Isoproterenol 0.2 MG/1 ML AMP ONE (12:05)
[2020-09-03] MEDS ORDERED: Protamine Sulfate 50 MG/5 ML VIAL ONE (15:22)
[2020-09-03] MEDS ORDERED: Promethazine HCl 25 MG/ML VIAL IM PRN (16:03)
[2020-09-03] MEDS ORDERED: Ondansetron HCl/PF 4 MG/2 ML Vial IVP PRN (16:03)
[2020-09-03] MEDS ORDERED: Promethazine HCl 25 MG/ML VIAL IVPB PRN (16:03)
[2020-09-03] MEDS ORDERED: Ketorolac Tromethamine 30 MG/ML VIAL IVP PRN (16:10)
[2020-09-03] MEDS ORDERED: Acetaminophen 325 MG TAB PO PRN (16:12)
[2020-09-03] MEDS ORDERED: Potassium Chloride 20 MEQ TAB PO SCH (16:15)
[2020-09-03] MEDS ORDERED: Furosemide 40 MG/4 ML VIAL SLOW IVP SCH (16:15)
[2020-09-03] MEDS ORDERED: Furosemide 40 MG TAB PO PRN (16:15)
[2020-09-03] MEDS ORDERED: Acetaminophen/Codeine 30-300mg Tablet PO PRN ×2 (16:15)
[2020-09-03] MEDS ORDERED: Potassium Chloride 20 MEQ TAB PO PRN (16:15)
[2020-09-03] MEDS ORDERED: metFORMIN XR 500 MG TAB PO SCH (17:00)
[2020-09-03] MEDS ORDERED: Furosemide 20 MG/2 ML VIAL ONE (17:04)
[2020-09-03] MEDS ORDERED: Furosemide 40 MG/4 ML VIAL ONE (17:04)
[2020-09-03] MEDS ORDERED: Acetaminophen/Codeine 30-300mg Tablet ONE (17:53)
[2020-09-03] MEDS ORDERED: Atorvastatin Calcium 40 MG TAB PO SCH (21:00)
[2020-09-03] MEDS: Sacubitril 49 MG/Valsartan 51 MG TABLET PO SCH (22:15)
[2020-09-03] MEDS: Apixaban 5 MG TAB PO SCH (22:15)
[2020-09-03] MEDS: Sucralfate 1 GM TAB PO SCH ×2 (23:07→23:30)
[2020-09-03] MEDS: hydrALAZINE 25 MG TAB PO SCH (23:08)
[2020-09-03 23:11] VITALS: BMI 35.9
[2020-09-03] MEDS: Carvedilol 25 MG TAB PO SCH (23:30)
[2020-09-04 04:38] LABS: Hemoglobin 13.9 g/dL (14.0-18.0); Platelet Count 226 thou/uL (130-400)
[2020-09-04] MEDS: Sucralfate 1 GM TAB PO SCH (07:21)
[2020-09-04 08:34] VITALS: TEMP 98.1
[2020-09-04] MEDS ORDERED: Furosemide 20 MG TAB PO SCH (09:00)
[2020-09-04] MEDS: Sacubitril 49 MG/Valsartan 51 MG TABLET PO SCH (10:36)
[2020-09-04] MEDS: Carvedilol 25 MG TAB PO SCH (10:37)
[2020-09-04] MEDS: hydrALAZINE 25 MG TAB PO SCH (10:38)
[2020-09-04] MEDS: Apixaban 5 MG TAB PO SCH (10:38)
[2020-09-04 10:43] VITALS: BP 123/70
== END 2020-09-04 12:20 | disposition home or self-care (01) ==
LOC: SDC 07:57 → 2SW 16:09
PROVIDERS: ADMIT Internal Medicine Cardiovascular Disease; ATTEND Internal Medicine Cardiovascular Disease
PROC: 02583ZZ Destruction of Conduction Mechanism, Percutaneous Approach (ICD-10-PCS; principal; 2020-09-03)
PROC: 02K83ZZ Map Conduction Mechanism, Percutaneous Approach (ICD-10-PCS; 2020-09-03)
PROC: 4A023FZ Measurement of Cardiac Rhythm, Percutaneous Approach (ICD-10-PCS; 2020-09-03)
PROC: 4A0234Z Measurement of Cardiac Electrical Activity, Percutaneous Approach (ICD-10-PCS; 2020-09-03)
DX: I48.19 Other persistent atrial fibrillation (principal); I48.4 Atypical atrial flutter; I25.5 Ischemic cardiomyopathy; I11.0 Hypertensive heart disease with heart failure; I50.9 Heart failure, unspecified; E78.5 Hyperlipidemia, unspecified; E11.9 Type 2 diabetes mellitus without complications; E66.9 Obesity, unspecified; Z68.36 Body mass index [BMI] 36.0-36.9, adult; Z87.891 Personal history of nicotine dependence; Z79.01 Long term (current) use of anticoagulants; Z79.84 Long term (current) use of oral hypoglycemic drugs; Z79.899 Other long term (current) drug therapy
CPT/HCPCS: 76942; 82565; 82962 ×2; 85014; 85018; 85049; 85347 ×2; 93005 ×2; 93613; 93622; 93623; 93655; 93656; 93662; C1732 ×2; C1759; C1884; G0378 ×2; 36415; 36416; 93010; J1644; J1940; J2370; J2704; J2720; J3010

== ENCOUNTER 2021-07-24 12:57 | Outpatient (CLI) | payer MEDICARE, BC ==
[2021-07-24 14:41] LABS: ALT (SGPT) 25 U/L (8-55); AST (SGOT) 20 U/L (5-34); Albumin 4.2 g/dL (3.4-4.8); Alkaline Phosphatase 86 U/L (40-110); Anion Gap 16 mmol/L (10-20); BUN (Urea Nitrogen) 18 mg/dL (8.4-25.7); Bilirubin, Total 1.6 mg/dL (0.2-1.2); Calc. Creatinine Clearance 0 mL/min (70-130); Carbon Dioxide 24 mmol/L (23-31); Chloride 102 mmol/L (98-107); Globulin 3.1 g/dL (2.4-3.5); Glucose 104 mg/dL (83-110); Potassium 4.1 mmol/L (3.5-5.1); Protein, Total 7.3 g/dL (5.8-8.1); Sodium 138 mmol/L (136-145)
== END 2021-07-24 12:58 | disposition home or self-care (01) ==
LOC: LABBT 12:57
PROVIDERS: ATTEND Internal Medicine Cardiovascular Disease
DX: Z01.818 Encounter for other preprocedural examination (principal); Z20.822 Contact with and (suspected) exposure to COVID-19
CPT/HCPCS: 80053; 81003; 85027; 85610; 85730; 86850; 86900; 86901; 86920; 93005; U0003; U0005; 93010

== ENCOUNTER 2021-07-24 13:30 | Inpatient (IN) | payer MEDICARE, BC ==
[2021-07-24 13:36] VITALS: BMI 34.5
[2021-07-24 14:20] LABS: Hemoglobin 14.9 g/dL (13.5-17.5); Mean Corpuscular HGB CONC 33.6 g/dL (32.0-36.0); Mean Corpuscular Hemoglobin 29.3 pg (27.0-33.0); Mean Corpuscular Volume 87.4 fl (81.2-95.1); Mean Platelet Volume 9.6 fl (7.4-10.4); Platelet Count 262 10x3/uL (150-450); RBC Distribution Width 14.4 % (11.5-14.5); Red Blood Cell (RBC) Count 5.08 10x6/uL (4.32-5.72); White Blood Cell (WBC) Count 6.6 10x3/uL (3.5-10.5)
[2021-07-24 14:24] LABS: Bilirubin Neg (Negative); Blood, Urine Negative (Negative); Clarity Clear (Clear); Glucose, Urine (Dipstick) Normal (Negative); Ketone, Urine Negative (Negative); Leukocyte Negative (Negative); Nitrite Negative (Negative); Protein, Urine (Dipstick) Negative (Neg-Trace); Specific Gravity, Urine 1.005 (1.002-1.036); Urobilinogen Normal mg/dL (Less than 2); pH, Urine 6.5 (5.0-9.0)
[2021-07-24 14:51] LABS: INR-International Normal Ratio 1.1; PTT 30.5 sec (22.0-33.0); Prothrombin Time 12.1 sec (9.5-12.1)
[2021-07-25 08:33] LABS: SARS-CoV-2 PCR by NAA Not Detected (NotDetected)
[2021-07-29] MEDS ORDERED: Iopamidol 370 76% 100 ML VIAL ONE (08:46)
[2021-07-29] MEDS ORDERED: Protamine Sulfate 50 MG/5 ML VIAL ONE (10:53)
[2021-07-29] MEDS ORDERED: CEFAZOLIN 1 GM VIAL ONE (10:53)
[2021-07-29] MEDS ORDERED: Heparin 10,000 UNITS/ 10 ML VIAL ONE (10:53)
[2021-07-29] MEDS ORDERED: PHENYLEPHRINE-NS 100 MCG/ML 10 ML SYRINGE ONE (12:12)
[2021-07-29] MEDS ORDERED: Lidocaine 1% PF 5 ML VIAL ONE (12:12)
[2021-07-29] MEDS ORDERED: Rocuronium Bromide 10 MG/ML (10ML VIAL) ONE (12:12)
[2021-07-29] MEDS ORDERED: Ondansetron PF 4 MG/2 ML Vial ONE (12:12)
[2021-07-29] MEDS ORDERED: PROPOFOL 200 MG/20 ML VIAL ONE (12:12)
[2021-07-29] MEDS ORDERED: Dexamethasone 20 MG/5 ML VIAL ONE (12:12)
[2021-07-29] MEDS ORDERED: Glycopyrrolate 0.2 MG/ML 5 ML SYRINGE ONE (12:12)
[2021-07-29] MEDS ORDERED: Ketorolac Tromethamine 30 MG/ML VIAL ONE ×2 (12:12)
[2021-07-29] MEDS ORDERED: SUGAMMADEX SODIUM 200 MG/2 ML VIAL ONE (13:22)
[2021-07-29] MEDS ORDERED: fentaNYL Citrate/PF 100 MCG/2 ML SYRINGE ONE (14:09)
== END 2021-07-29 17:40 | disposition home or self-care (01) | DRG 274 ==
LOC: SURG A 07-29 07:56
PROVIDERS: ADMIT Internal Medicine Cardiovascular Disease; ATTEND Internal Medicine Cardiovascular Disease
PROC: 02L73DK Occlusion of Left Atrial Appendage with Intraluminal Device, Percutaneous Approach (ICD-10-PCS; principal; 2021-07-29)
PROC: B24BZZ4 Ultrasonography of Heart with Aorta, Transesophageal (ICD-10-PCS; 2021-07-29)
DX: I48.19 Other persistent atrial fibrillation (principal); I31.3 Pericardial effusion (noninflammatory); Z00.6 Encounter for examination for normal comparison and control in clinical research program; I11.0 Hypertensive heart disease with heart failure; I50.9 Heart failure, unspecified; I42.0 Dilated cardiomyopathy; E11.9 Type 2 diabetes mellitus without complications; I08.1 Rheumatic disorders of both mitral and tricuspid valves; Z20.822 Contact with and (suspected) exposure to COVID-19; Z79.84 Long term (current) use of oral hypoglycemic drugs; Z79.899 Other long term (current) drug therapy
CPT/HCPCS: 33340; 36430; 81003; 85027; 85347; 85610; 85730; 86850; 86900; 86901; 93306; 93312; C1759; J0690; J1100; J1644; J1885; J2405; J2704; J2720; Q9967; U0003; U0005

== ENCOUNTER 2021-07-30 01:02 | Observation (INO) | payer MEDICARE, BC ==
[2021-07-30 01:45] LABS: #Lymphocytes 0.6 thou/uL (1.20-3.40); #Monocytes 0.4 thou/uL (0.11-0.59); #Neutrophils 9.4 thou/uL (1.40-6.50); %Lymphocytes 5.3 % (21.0-51.0); %Monocytes 4.3 % (0.0-10.0); %Neutrophils 90.4 % (42.0-75.0); Hemoglobin 14.2 g/dL (14.0-18.0); Mean Corpuscular HGB CONC 33.4 g/dL (32.0-36.0); Mean Corpuscular Volume 92.8 fL (78.0-98.0); Mean Platelet Volume 6.9 fL (7.4-10.4); Platelet Count 235 thou/uL (130-400); RBC Distribution Width 12.9 % (11.5-14.5); Red Blood Cell (RBC) Count 4.57 mill/uL (4.70-6.10); White Blood Cell (WBC) Count 10.3 thou/uL (4.8-10.8)
[2021-07-30] MEDS ORDERED: Ondansetron PF 4 MG/2 ML Vial IVP PRN (03:45)
[2021-07-30] MEDS ORDERED: Ondansetron ODT 4 MG TAB SL PRN (03:45)
[2021-07-30] MEDS ORDERED: Xylocaine 1% w/ Epi 1:100K 10 ML VIAL ONE (08:29)
== END 2021-07-30 11:02 | disposition home or self-care (01) ==
LOC: ERS 01:02 → ERHOLD 03:32
PROVIDERS: ADMIT Internal Medicine; ATTEND Internal Medicine
DX: M96.831 Postprocedural hemorrhage of a musculoskeletal structure following other procedure (principal); I48.19 Other persistent atrial fibrillation; I10 Essential (primary) hypertension; Z79.01 Long term (current) use of anticoagulants; Z79.82 Long term (current) use of aspirin; Z79.84 Long term (current) use of oral hypoglycemic drugs; Z79.899 Other long term (current) drug therapy; Z95.818 Presence of other cardiac implants and grafts
CPT/HCPCS: 76936; 85025; 86850; 86900; 86901; 99285; G0378; 36415

== ENCOUNTER 2021-08-30 08:56 | Outpatient (CLI) | payer MEDICARE, BC ==
[2021-08-30 10:41] LABS: Hemoglobin 13.8 g/dL (13.5-17.5); Mean Corpuscular HGB CONC 32.5 g/dL (32.0-36.0); Mean Corpuscular Hemoglobin 29.5 pg (27.0-33.0); Mean Corpuscular Volume 90.8 fl (81.2-95.1); Mean Platelet Volume 9.4 fl (7.4-10.4); Platelet Count 254 10x3/uL (150-450); RBC Distribution Width 14.1 % (11.5-14.5); Red Blood Cell (RBC) Count 4.68 10x6/uL (4.32-5.72); White Blood Cell (WBC) Count 6.3 10x3/uL (3.5-10.5)
[2021-08-30 10:53] LABS: Anion Gap 15 mmol/L (10-20); BUN (Urea Nitrogen) 25 mg/dL (8.4-25.7); Calc. Creatinine Clearance 0 mL/min (70-130); Calcium 9.2 mg/dL (7.8-10.44); Carbon Dioxide 27 mmol/L (23-31); Chloride 105 mmol/L (98-107); Glucose 122 mg/dL (83-110); Potassium 4.5 mmol/L (3.5-5.1); Sodium 142 mmol/L (136-145)
== END 2021-08-30 08:57 | disposition home or self-care (01) ==
LOC: LABBT 08:56
PROVIDERS: ATTEND Internal Medicine Cardiovascular Disease
DX: Z01.812 Encounter for preprocedural laboratory examination (principal); I48.19 Other persistent atrial fibrillation; Z20.822 Contact with and (suspected) exposure to COVID-19
CPT/HCPCS: 80048; 85027; U0003; U0005

== ENCOUNTER 2021-09-04 07:56 | Day surgery (SDC) | payer MEDICARE, BC ==
[2021-08-30 13:22] VITALS: BMI 33.9
[2021-09-04] MEDS ORDERED: PROPOFOL 20 ML ONE ×2 (11:27→12:15)
== END 2021-09-04 13:27 | disposition home or self-care (01) ==
LOC: CCL 07:56
PROVIDERS: ATTEND Internal Medicine Cardiovascular Disease
PROC: B246ZZ4 Ultrasonography of Right and Left Heart, Transesophageal (ICD-10-PCS; principal; 2021-09-04)
DX: I48.19 Other persistent atrial fibrillation (principal); I51.7 Cardiomegaly; I34.0 Nonrheumatic mitral (valve) insufficiency; I31.3 Pericardial effusion (noninflammatory); Z79.02 Long term (current) use of antithrombotics/antiplatelets; Z79.82 Long term (current) use of aspirin; Z79.84 Long term (current) use of oral hypoglycemic drugs; Z79.899 Other long term (current) drug therapy; Z95.818 Presence of other cardiac implants and grafts
CPT/HCPCS: 93312; J2704

== ENCOUNTER 2022-02-24 08:02 | Day surgery (SDC) | payer MEDICARE, BC ==
[2022-02-21 14:24] VITALS: BMI 33.2
[2022-02-24] MEDS ORDERED: Bupivacaine 0.25% HCL 30 ML VIAL ONE (10:33)
[2022-02-24] MEDS ORDERED: Bacitracin Zinc Ointment 30 gm TUBE ONE (10:33)
[2022-02-24] MEDS ORDERED: fentaNYL PF 100 MCG/2 ML SYRINGE ONE (10:41)
[2022-02-24] MEDS ORDERED: CEFAZOLIN 2 GM VIAL ONE (10:45)
[2022-02-24] MEDS ORDERED: Sodium Chloride 0.9% 100 ML ONE (10:45)
[2022-02-24] MEDS ORDERED: PROPOFOL 200 MG/20 ML VIAL ONE (10:58)
[2022-02-24] MEDS ORDERED: GLYCOPYRROLATE/PF 0.2 MG/ML VIAL ONE (10:58)
[2022-02-24] MEDS ORDERED: Phenylephrine 10 MG/ML VIAL ONE (10:58)
[2022-02-24] MEDS ORDERED: Dexamethasone 20 MG/5 ML VIAL ONE (10:58)
[2022-02-24] MEDS ORDERED: Ondansetron PF 4 MG/2 ML Vial ONE (10:58)
== END 2022-02-24 14:39 | disposition home or self-care (01) ==
LOC: SDC 08:02
PROVIDERS: ATTEND Urology
PROC: 0VB60ZZ Excision of Right Tunica Vaginalis, Open Approach (ICD-10-PCS; principal; 2022-02-24)
DX: N43.3 Hydrocele, unspecified (principal); E11.9 Type 2 diabetes mellitus without complications; I11.9 Hypertensive heart disease without heart failure; I48.91 Unspecified atrial fibrillation; Z79.82 Long term (current) use of aspirin; Z79.84 Long term (current) use of oral hypoglycemic drugs; Z79.899 Other long term (current) drug therapy
CPT/HCPCS: 55040; J3490; 88302; J1100; J2370; J2405; J2704; S0020

== ENCOUNTER 2022-03-06 15:36 | Inpatient (IN) | payer MEDICARE, BC ==
[2022-03-06 17:05] LABS: #Eosinphils 0.1 thou/uL (0.0-0.7); #Lymphocytes 0.6 thou/uL (1.20-3.40); #Monocytes 0.6 thou/uL (0.11-0.59); #Neutrophils 6.7 thou/uL (1.40-6.50); %Basophils 0.3 % (0.0-1.0); %Eosinophils 0.7 % (0.0-10.0); %Lymphocytes 7.5 % (21.0-51.0); %Monocytes 7.4 % (0.0-10.0); Mean Corpuscular HGB CONC 33.7 g/dL (32.0-36.0); Mean Corpuscular Hemoglobin 31.4 pg (27.0-31.0); Mean Corpuscular Volume 93.1 fl (78.0-98.0); Mean Platelet Volume 6.6 fL (7.4-10.4); Platelet Count 261 10x3/uL (130-400); RBC Distribution Width 12.7 % (11.5-14.5); Red Blood Cell (RBC) Count 3.83 mill/uL (4.70-6.10)
[2022-03-06 17:16] LABS: INR-International Normal Ratio 1.1; Prothrombin Time 14.5 sec (12.0-14.7)
[2022-03-06 17:17] LABS: PTT 31.6 sec (22.9-36.1)
[2022-03-06 17:31] LABS: Anion Gap 16 mmol/L (10-20); BUN (Urea Nitrogen) 21 mg/dL (8.4-25.7); Calc. Creatinine Clearance 0 mL/min (70-130); Calcium 8.4 mg/dL (7.8-10.44); Carbon Dioxide 24 mmol/L (23-31); Chloride 104 mmol/L (98-107); Estimated GFR 84; Glucose 117 mg/dL (83-110); Potassium 3.5 mmol/L (3.5-5.1); Sodium 140 mmol/L (136-145)
[2022-03-06] MEDS ORDERED: Bupivacaine PF 0.5% 30 ML VIAL ONE (18:17)
[2022-03-06] MEDS ORDERED: Lidocaine 1% (PF) 30 ML VIAL ONE (18:17)
[2022-03-06] MEDS ORDERED: Bupivacaine 0.25% HCL 30 ML VIAL ONE (18:17)
[2022-03-06] MEDS ORDERED: CEFAZOLIN 2 GM VIAL ONE (18:41)
[2022-03-06] MEDS ORDERED: Sodium Chloride 0.9% 0 ML ONE (18:41)
[2022-03-06] MEDS ORDERED: Sodium Chloride 0.9% 100 ML ONE (18:47)
[2022-03-06] MEDS ORDERED: Fentanyl 250 MCG/5 ML VIAL ONE (18:51)
[2022-03-06] MEDS ORDERED: Lidocaine 1% PF 5 ML VIAL ONE (19:00)
[2022-03-06] MEDS ORDERED: PROPOFOL 200 MG/20 ML VIAL ONE (19:00)
[2022-03-06] MEDS ORDERED: Ondansetron PF 4 MG/2 ML Vial ONE (19:00)
[2022-03-06] MEDS ORDERED: Levofloxacin 500 mg/D5W 100 ml Premix Bag ONE (19:54)
[2022-03-06] MEDS ORDERED: traMADol HCl 50 MG TAB PO PRN (21:34)
[2022-03-06 21:36] LABS: SARS-CoV-2 NAA Rapid Test Not Detected (NotDetected)
[2022-03-06] MEDS ORDERED: Dextrose 5% in Water 1,000 ML IV PRN (21:38)
[2022-03-06] MEDS ORDERED: HumaLOG 300 UNITS/3 ML VIAL SC PRN ×2 (21:38)
[2022-03-06] MEDS ORDERED: Acetaminophen 650 MG Suppository PR PRN (21:38)
[2022-03-06] MEDS ORDERED: Ondansetron ODT 4 MG TAB PO PRN (21:38)
[2022-03-06] MEDS ORDERED: Ondansetron PF 4 MG/2 ML Vial IVP PRN (21:38)
[2022-03-06] MEDS ORDERED: Dextrose 50% Abboject 50 ML SYRINGE SLOW IVP PRN (21:38)
[2022-03-06] MEDS: D5 1/2 NS w/10 mEq KCl 1,000 ML/1,000 ML BAG IV SCH (22:32)
[2022-03-07 00:37] VITALS: BMI 32.5
[2022-03-07 06:14] LABS: #Lymphocytes 0.5 thou/uL (1.20-3.40); #Monocytes 0.6 thou/uL (0.11-0.59); #Neutrophils 7.4 thou/uL (1.40-6.50); %Basophils 0.2 % (0.0-1.0); %Eosinophils 0.5 % (0.0-10.0); %Monocytes 6.8 % (0.0-10.0); %Neutrophils 86.4 % (42.0-75.0); Hemoglobin 11.3 g/dL (14.0-18.0); Mean Corpuscular Hemoglobin 31.1 pg (27.0-31.0); Mean Corpuscular Volume 94.3 fl (78.0-98.0); Mean Platelet Volume 6.8 fL (7.4-10.4); Platelet Count 261 10x3/uL (130-400); Red Blood Cell (RBC) Count 3.63 mill/uL (4.70-6.10); White Blood Cell (WBC) Count 8.5 10x3/uL (4.8-10.8)
[2022-03-07 06:38] LABS: Anion Gap 13 mmol/L (10-20); BUN (Urea Nitrogen) 17 mg/dL (8.4-25.7); Calc. Creatinine Clearance 122 mL/min (70-130); Calcium 7.8 mg/dL (7.8-10.44); Carbon Dioxide 25 mmol/L (23-31); Chloride 102 mmol/L (98-107); Estimated GFR 93; Glucose 145 mg/dL (83-110); Potassium 3.5 mmol/L (3.5-5.1); Sodium 136 mmol/L (136-145)
[2022-03-07] MEDS ORDERED: Sacubitril 49 MG/Valsartan 51 MG TABLET PO SCH (09:00)
[2022-03-07] MEDS ORDERED: Carvedilol 25 MG TAB PO SCH (09:00)
[2022-03-07] MEDS: hydrALAZINE 25 MG TAB PO SCH ×2 (09:33→21:35)
[2022-03-07] MEDS: Sacubitril 49 MG/Valsartan 51 MG TABLET PO SCH ×2 (09:33→21:35)
[2022-03-07] MEDS: Furosemide 20 MG TAB PO SCH (09:34)
[2022-03-07] MEDS: Carvedilol 25 MG TAB PO SCH ×2 (09:34→21:35)
[2022-03-07] MEDS: Ezetimibe 10 MG TAB PO SCH (09:34)
[2022-03-07] MEDS: Atorvastatin Calcium 40 MG TAB PO SCH (09:34)
[2022-03-07] MEDS ORDERED: Lidocaine Jelly 2% Urojet 10 ML ONE (10:33)
[2022-03-07] MEDS: traMADol HCl 50 MG TAB PO PRN (12:24)
[2022-03-07] MEDS: D5 1/2 NS w/10 mEq KCl 1,000 ML/1,000 ML BAG IV SCH (12:24)
[2022-03-07] MEDS: Tamsulosin HCl 0.4 MG CAP PO SCH (12:25)
[2022-03-07] MEDS ORDERED: metFORMIN XR 500 MG TAB PO SCH (21:00)
[2022-03-08] MEDS: D5 1/2 NS w/10 mEq KCl 1,000 ML/1,000 ML BAG IV SCH ×4 (01:38→23:45)
[2022-03-08] MEDS: Ezetimibe 10 MG TAB PO SCH (10:12)
[2022-03-08] MEDS: Atorvastatin Calcium 40 MG TAB PO SCH (10:12)
[2022-03-08] MEDS: Sacubitril 49 MG/Valsartan 51 MG TABLET PO SCH ×2 (10:12→20:30)
[2022-03-08] MEDS: hydrALAZINE 25 MG TAB PO SCH ×2 (10:13→20:30)
[2022-03-08] MEDS: Furosemide 20 MG TAB PO SCH (10:13)
[2022-03-08] MEDS: Carvedilol 25 MG TAB PO SCH ×2 (10:13→20:30)
[2022-03-08] MEDS: Tamsulosin HCl 0.4 MG CAP PO SCH (12:38)
[2022-03-09] MEDS: Carvedilol 25 MG TAB PO SCH ×2 (08:51→20:51)
[2022-03-09] MEDS: Atorvastatin Calcium 40 MG TAB PO SCH (08:51)
[2022-03-09] MEDS: Ezetimibe 10 MG TAB PO SCH (08:51)
[2022-03-09] MEDS: Furosemide 20 MG TAB PO SCH (08:51)
[2022-03-09] MEDS: Sacubitril 49 MG/Valsartan 51 MG TABLET PO SCH ×2 (08:51→20:50)
[2022-03-09] MEDS: hydrALAZINE 25 MG TAB PO SCH ×2 (08:51→20:50)
[2022-03-09] MEDS: D5 1/2 NS w/10 mEq KCl 1,000 ML/1,000 ML BAG IV SCH (10:54)
[2022-03-09] MEDS: Tamsulosin HCl 0.4 MG CAP PO SCH (12:30)
[2022-03-09] MEDS: Acetaminophen 325 MG TAB PO PRN (17:59)
[2022-03-10] MEDS: Sacubitril 49 MG/Valsartan 51 MG TABLET PO SCH ×2 (08:58→21:01)
[2022-03-10] MEDS: Carvedilol 25 MG TAB PO SCH ×2 (08:58→21:01)
[2022-03-10] MEDS: Atorvastatin Calcium 40 MG TAB PO SCH (08:58)
[2022-03-10] MEDS: Ezetimibe 10 MG TAB PO SCH (08:58)
[2022-03-10] MEDS: Furosemide 20 MG TAB PO SCH (08:58)
[2022-03-10] MEDS: hydrALAZINE 25 MG TAB PO SCH ×2 (08:58→21:01)
[2022-03-10] MEDS: traMADol HCl 50 MG TAB PO PRN (10:05)
[2022-03-10] MEDS: Tamsulosin HCl 0.4 MG CAP PO SCH (14:01)
[2022-03-10] MEDS: Acetaminophen 325 MG TAB PO PRN ×2 (17:47→23:23)
[2022-03-11] MEDS: Acetaminophen 325 MG TAB PO PRN (04:23)
[2022-03-11] MEDS: Atorvastatin Calcium 40 MG TAB PO SCH (08:58)
[2022-03-11] MEDS: Sacubitril 49 MG/Valsartan 51 MG TABLET PO SCH (08:58)
[2022-03-11] MEDS: Ezetimibe 10 MG TAB PO SCH (08:58)
[2022-03-11] MEDS: Carvedilol 25 MG TAB PO SCH (08:59)
[2022-03-11] MEDS: hydrALAZINE 25 MG TAB PO SCH (08:59)
[2022-03-11] MEDS: Furosemide 20 MG TAB PO SCH (08:59)
[2022-03-11] MEDS: Tamsulosin HCl 0.4 MG CAP PO SCH (13:19)
[2022-03-11 15:37] VITALS: BP 127/80; TEMP 98.3
== END 2022-03-11 17:09 | disposition home or self-care (01) | DRG 857 ==
LOC: SDC 15:36 → SURG A 20:22
PROVIDERS: ADMIT Internal Medicine; ATTEND Internal Medicine
PROC: 0VC50ZZ Extirpation of Matter from Scrotum, Open Approach (ICD-10-PCS; principal; 2022-03-06)
PROC: 0V950ZZ Drainage of Scrotum, Open Approach (ICD-10-PCS; 2022-03-06)
DX: T81.43XA Infection following a procedure, organ and space surgical site, initial encounter (principal); I48.20 Chronic atrial fibrillation, unspecified; N99.840 Postprocedural hematoma of a genitourinary system organ or structure following a genitourinary system procedure; I50.22 Chronic systolic (congestive) heart failure; Z20.822 Contact with and (suspected) exposure to COVID-19; N43.3 Hydrocele, unspecified; I11.0 Hypertensive heart disease with heart failure; B96.20 Unspecified Escherichia coli [E. coli] as the cause of diseases classified elsewhere; B95.2 Enterococcus as the cause of diseases classified elsewhere; B96.89 Other specified bacterial agents as the cause of diseases classified elsewhere; E11.9 Type 2 diabetes mellitus without complications; R33.8 Other retention of urine; Z95.818 Presence of other cardiac implants and grafts; Z79.899 Other long term (current) drug therapy; Z79.82 Long term (current) use of aspirin; Z79.84 Long term (current) use of oral hypoglycemic drugs
CPT/HCPCS: 36415; 36416; 80048; 85025; 85610; 85730; 87070; 87077; 87186; 87205; 97139; J1956; J2001; J2405; J2704; J3010; J3480; J3490; S0020; U0002

== ENCOUNTER 2022-03-16 17:19 | Emergency (ER) | payer MEDICARE, BC | END 2022-03-16 19:15 | disposition home or self-care (01) | LOC: ERS 17:19 | DX: S31.30XD Unspecified open wound of scrotum and testes, subsequent encounter (principal) | CPT/HCPCS: 99282 ==